=== PATIENT | female | born 1945 | race Caucasian/White ===

== ENCOUNTER 2017-05-18 08:50 | Day surgery (SDC) | payer OTHER ==
[2017-05-18] MEDS ORDERED: ACETAZOLAMIDE 500 MG CER ONE (09:04)
[2017-05-18] MEDS: PROPARACAINE HCL 0.5% OPHTHALMIC SOL ONE ×3 (09:28→10:50)
[2017-05-18] MEDS: CYCLOPENTOLATE 1% SOL ONE ×2 (09:28→09:43)
[2017-05-18] MEDS: KETOROLAC 0.5% OPTH 60 DROP SOL ONE ×2 (09:29→09:46)
[2017-05-18] MEDS: PHENYLEPHRINE HCL 10% OPHTHAL SOL ONE ×2 (09:29→09:44)
[2017-05-18 09:33] VITALS: TEMP 97.6
[2017-05-18] MEDS ORDERED: MIDAZOLAM 2 MG/2 ML SOL ONE (10:15)
[2017-05-18] MEDS ORDERED: FENTANYL 100MCG/2ML SOL ONE (10:15)
[2017-05-18] MEDS ORDERED: POVIDONE IODINE 5% SOL ONE (10:46)
[2017-05-18] MEDS ORDERED: BSS 500 ML 500 ML IR ONE (10:46)
[2017-05-18] MEDS ORDERED: LIDOCAINE HCL 1% MPF SOL ONE (10:46)
[2017-05-18 11:24] VITALS: BP 128/53; PULSE 60; RESP 20; O2SAT 96
== END 2017-05-18 11:35 | disposition home or self-care (01) | DRG 125 ==
LOC: SURG 08:50
PROVIDERS: ATTEND Ophthalmology
DX: H25.9 Unspecified age-related cataract (principal)
CPT/HCPCS: J2250; J3010; J2001

== ENCOUNTER 2017-06-15 08:26 | Day surgery (SDC) | payer OTHER ==
[~2017-06-15 08:26] MED LIST: ACETAZOLAMIDE 500 MG CER ONE; MIDAZOLAM 2 MG/2 ML SOL ONE
[2017-06-15] MEDS: PROPARACAINE HCL 0.5% OPHTHALMIC SOL ONE ×3 (08:36→09:32)
[2017-06-15] MEDS: CYCLOPENTOLATE 1% SOL ONE ×2 (08:37→08:49)
[2017-06-15] MEDS: PHENYLEPHRINE HCL 10% OPHTHAL SOL ONE ×2 (08:37→08:48)
[2017-06-15 08:38] VITALS: O2SAT 98
[2017-06-15] MEDS: KETOROLAC 0.5% OPTH 60 DROP SOL ONE ×2 (08:38→08:49)
[2017-06-15] MEDS ORDERED: BSS 500 ML 500 ML IR ONE (09:27)
[2017-06-15] MEDS ORDERED: POVIDONE IODINE 5% SOL ONE (09:27)
[2017-06-15] MEDS ORDERED: LIDOCAINE HCL 1% MPF SOL ONE (09:27)
[2017-06-15 10:06] VITALS: BP 125/66; PULSE 62; RESP 20; TEMP 97.8
== END 2017-06-15 10:15 | disposition home or self-care (01) | DRG 125 ==
LOC: SURG 08:26
PROVIDERS: ATTEND Ophthalmology
DX: H25.9 Unspecified age-related cataract (principal)
CPT/HCPCS: J2250; J2001